=== PATIENT | male | born 1990 | race American Indian/Alaskan Native ===

== ENCOUNTER 2020-09-13 11:54 | Emergency (ER) | payer BC ==
--- NOTE | 2020-09-13 13:30 | XRay Report ---
CHEST 2 VIEWS INDICATION / CLINICAL INFORMATION: cough, tachycardia. COMPARISON: None available. FINDINGS: SUPPORT DEVICES: None. HEART / MEDIASTINUM: No significant abnormality. LUNGS / PLEURA: No significant pulmonary or pleural abnormality. No pneumothorax. ADDITIONAL FINDINGS: No significant additional findings. IMPRESSION: 1. No acute findings. Signer Name: Selvin Peña MD Signed: 09/13/2020 1:26 PM Workstation Name: [id number] [id number]
[2020-09-13] MEDS ORDERED: DEXAMETHASONE 4 MG TAB PO ONE (14:06)
[2020-09-13] MEDS ORDERED: KETOROLAC 10 MG TAB PO ONE (14:06)
--- NOTE | 2020-09-13 14:10 | Emergency Department Report ---
- General Chief Complaint: Dyspnea/Respdistress Stated Complaint: BAD COLD Time Seen by Provider: 09/13/20 13:52 Source: patient Mode of arrival: Ambulatory Limitations: No Limitations - History of Present Illness Initial Comments: 29-year-old male with no significant past history presents to the ER today with complaints of a bad cold. Patient states that his symptoms started Thursday after returning from a fishing trip in [place]. Patient complains of rhinorrhea, nasal congestion, headache, bilateral ear pain and subjective fever. He denies any coughing, wheezing or shortness of breath. He denies any GI or symptoms. He denies any ill contacts. He does have a history of tobacco use. MD Complaint: rhinorrhea, nasal congestion, sinus pain, other (Headache ) -: days(s) (4) - Related Data Previous Rx's Medication Instructions Recorded Last Taken Type Amoxicillin/Potassium Clav 1 each PO Q12HR #14 tablet 09/13/20 Unknown Rx [Augmentin 875-125 Tablet] Cetirizine HCl [Zyrtec 10mg tab] 10 mg PO DAILY #30 tablet 09/13/20 Unknown Rx Fluticasone [Flonase] 2 spray NS QDAY #1 bottle 09/13/20 Unknown Rx Ibuprofen [Motrin] 800 mg PO Q8HR PRN #30 tablet 09/13/20 Unknown Rx Allergies Allergy/AdvReac Type Severity Reaction Status Date / Time No Known Allergies Allergy Unverified 09/13/20 12:33 ED Review of Systems ROS: Stated complaint: BAD COLD Other details as noted in HPI Comment: All other systems reviewed and negative Constitutional: fever (Subjective). denies: chills, diaphoresis, malaise, weakness Eyes: denies: eye pain, eye discharge, vision change ENT: throat pain, congestion, other (Rhinorrhea). denies: dental pain, hearing loss, epistaxis Respiratory: denies: cough, shortness of breath, SOB with exertion, SOB at rest, wheezing Cardiovascular: denies: chest pain, palpitations, dyspnea on exertion, edema, syncope, paroxysmal nocturnal dyspnea Gastrointestinal: denies: abdominal pain, nausea, vomiting, diarrhea, constipation, hematemesis, melena, hematochezia Genitourinary: denies: urgency, dysuria, frequency, hematuria, discharge, testicular pain, testicular mass Musculoskeletal: denies: back pain, joint swelling, arthralgia, myalgia Skin: denies: rash, lesions, change in color, change in hair/nails, pruritus Neurological: denies: headache, weakness, paresthesias Psychiatric: denies: anxiety, depression, auditory hallucinations, visual hallucinations, homicidal thoughts, suicidal thoughts Hematological/Lymphatic: denies: easy bleeding, easy bruising, swollen glands ED Past Medical Hx - Past Medical History Previous Medical History?: No - Surgical History Past Surgical History?: Yes Additional Surgical History: T&A - Medications Home Medications: Home Medications Medication Instructions Recorded Confirmed Last Taken Type Amoxicillin/Potassium Clav 1 each PO Q12HR #14 tablet 09/13/20 Unknown Rx [Augmentin 875-125 Tablet] Cetirizine HCl [Zyrtec 10mg tab] 10 mg PO DAILY #30 tablet 09/13/20 Unknown Rx Fluticasone [Flonase] 2 spray NS QDAY #1 bottle 09/13/20 Unknown Rx Ibuprofen [Motrin] 800 mg PO Q8HR PRN #30 tablet 09/13/20 Unknown Rx ED Physical Exam - General Limitations: No Limitations General appearance: alert, in no apparent distress - Head Head exam: Present: atraumatic, normocephalic, normal inspection - Eye Eye exam: Present: normal appearance, PERRL, EOMI Pupils: Present: normal accommodation - ENT ENT exam: Present: normal exam, other (Positive frontal sinus tenderness bilaterally) - Expanded ENT Exam Expanded TM/Canal exam: Erythema: Right TM, Left TM, Bulging: Right TM, Left TM, Effusion: Right TM, Left TM Mouth exam: Present: normal external inspection. Absent: drooling, trismus, muffled voice, tongue normal, tongue elevation, laceration Teeth exam: Present: normal inspection Throat exam: Positive: normal inspection - Neck Neck exam: Present: normal inspection. Absent: meningismus - Respiratory Respiratory exam: Present: normal lung sounds bilaterally. Absent: respiratory distress, wheezes, rales, rhonchi - Cardiovascular Cardiovascular Exam: Present: regular rate, normal rhythm, normal heart sounds - GI/Abdominal GI/Abdominal exam: Present: soft. Absent: distended, tenderness, guarding, rebound - Neurological Exam Neurological exam: Present: alert, oriented X3, CN II-XII intact, normal gait - Psychiatric Psychiatric exam: Present: normal affect, normal mood - Skin Skin exam: Present: intact ED Course Vital Signs 09/13/20 09/13/20 12:35 14:42 Temperature 98.7 F Pulse Rate 111 H 111 H Respiratory 18 97 H Rate Blood Pressure 128/85 Blood Pressure 134/89 [Right] O2 Sat by Pulse 98 97 Oximetry ED Medical Decision Making - Radiology Data Radiology results: report reviewed Patient: ERNESTINA GARZA MR#: [id number] : 1990 Acct:[id number] Age/Sex: 29 / M ADM Date: 09/13/20 Loc: ED Attending Dr: Ordering Physician: MARLY DORSEY Date of Service: 09/13/20 Procedure(s): XR chest routine 2V Accession Number(s): [id number] cc: MARLY DORSEY Fluoro Time In Minutes: CHEST 2 VIEWS INDICATION / CLINICAL INFORMATION: cough, tachycardia. COMPARISON: None available. FINDINGS: SUPPORT DEVICES: None. HEART / MEDIASTINUM: No significant abnormality. LUNGS / PLEURA: No significant pulmonary or pleural abnormality. No pneumothorax. ADDITIONAL FINDINGS: No significant additional findings. IMPRESSION: 1. No acute findings. Signer Name: Selvin Peña MD Signed: 09/13/2020 1:26 PM Workstation Name: [id number] Transcribed By: CW Dictated By: MOODY PEÑA MD Electronically Authenticated By: MOODY PEÑA MD Signed Date/Time: 09/13/201325 DD/ 25 TD/TT: - Medical Decision Making The patient is now resting comfortably, is alert and in no distress. The patient has normal mental status and is neurologically intact. The patient appears well and there is no significant dehydration. There is no respiratory distress and no signs of systemic toxicity. His history, exam, diagnostic testing and current condition do not demonstrate an infectious process such as meningitis, severe pneumonia, retropharyngeal abscess, epiglottitis, sepsis or other serious bacterial infection requiring further testing, treatment, consultation or admission at this time. Discussed suspected and treatment with patient. He expressed understanding of instructions and agreed with plan. The patient's condition is stable and appropriate for discharge. The patient will pursue further outpatient evaluation with the primary care physician. Critical care attestation.: If time is entered above; I have spent that time in minutes in the direct care of this critically ill patient, excluding procedure time. ED Disposition Clinical Impression: Acute bacterial sinusitis, Acute otitis media Disposition: DC-01 TO HOME OR SELFCARE Is pt being admited?: No Does the pt Need Aspirin: No Condition: Stable Instructions: Sinusitis, Adult, Otitis Media, Adult Additional Instructions: Recommend that you take the antibiotics as well as other medication as prescribed. Recommend rest and lots of fluids. Also recommend getting an outpatient COVID-19 test. Follow-up closely with the primary care doctor listed on your discharge instructions. Return to the ER if your symptoms changes or worsens in any way. Prescriptions: Amoxicillin/Potassium Clav [Augmentin 875-125 Tablet] 1 each PO Q12HR #14 tablet Fluticasone [Flonase] 2 spray NS QDAY #1 bottle Ibuprofen [Motrin] 800 mg PO Q8HR PRN #30 tablet PRN Reason: PAIN Cetirizine HCl [Zyrtec 10mg tab] 10 mg PO DAILY #30 tablet Referrals: NEEL HOUSTON MD [Staff Physician] - 3-5 Days Forms: Work/School Release Form(ED) Time of Disposition: 14:12
[2020-09-13 14:43] VITALS: BP 128/85
== END 2020-09-13 14:47 | disposition home or self-care (01) ==
LOC: ED 11:54
DX: H66.93 Otitis media, unspecified, bilateral (principal); J01.90 Acute sinusitis, unspecified; Z79.899 Other long term (current) drug therapy; Z98.890 Other specified postprocedural states
CPT/HCPCS: 71046; 99283; J8540